=== PATIENT | female | born 1955 | race Caucasian/White ===

== ENCOUNTER 2021-04-21 17:21 | Observation (INO) ==
[2021-04-21 18:13] LABS: Basophils # (auto) 0.01 K/uL (0-0.2); Basophils % (auto) 0.2 %; Eosinophils # (auto) 0.12 K/uL (0-0.5); Eosinophils % (auto) 2.5 %; Hematocrit (blood only) 43.1 % (37-47); Hemoglobin 14.4 g/dL (12.0-16.0); Lymphocytes # (auto) 1.57 K/uL (1.2-3.4); Lymphocytes % (auto) 32.1 %; Mean Corpuscular Hemoglobin 30.9 pg (25-34); Mean Corpuscular Hgb Conc 33.4 g/dL (32-36); Mean Corpuscular Volume 92.5 fL (80-100); Mean Platelet Volume 10.2 fL (7.4-10.4); Monocytes # (auto) 0.34 K/uL (0.11-0.59); Neutrophils # (auto) 2.85 K/uL (1.4-6.5); Neutrophils % (auto) 58.2 %; Platelet Count 287 K/uL (130-400); RDW Coefficient of Variation 12.5 % (11.5-14.5); RDW Standard Deviation 42.2 fL (36.4-46.3); Red Blood Count 4.66 M/uL (4.2-5.4); White Blood Count 4.89 K/uL (4.8-10.8)
[2021-04-21 18:27] LABS: Partial Thromboplastin Time 25.2 Seconds (21.0-31.0); Prothrombin Time 9.8 Seconds (9.0-12.0)
[2021-04-21 18:36] LABS: Alanine Aminotransferase 21 U/L (12-78); Albumin Level 4.3 gm/dl (3.4-5.0); Aspartate Aminotransferase 12 U/L (15-37); BUN Creatinine Ratio 14.7 (10-20); Blood Urea Nitrogen 18 mg/dl (7-18); Calcium 9.6 mg/dl (8.5-10.1); Carbon Dioxide 27 mmol/L (21-32); Chloride 103 mmol/L (98-107); Est GFR (African American) 52.8 ml/min; Est GFR (Non-African American) 45.5 ml/min; Glucose 112 mg/dl (70-99); Potassium 3.8 mmol/L (3.5-5.1); Sodium 137 mmol/L (136-145)
[2021-04-21 18:40] LABS: Albumin Globulin Ratio 1.3 (0.9-2); Alkaline Phosphatase 84 U/L (45-117); Bilirubin,Total 0.3 mg/dl (0.2-1); Globulin 3.3 gm/dl (2.5-4.0); Total Protein 7.6 gm/dl (6.4-8.2); Troponin I < 0.015 ng/ml (0-0.045)
--- NOTE | 2021-04-21 18:59 | XRay Report ---
XR chest 1V portable CLINICAL HISTORY: Chest Pain COMPARISON STUDY: No previous studies for comparison. FINDINGS: No pneumothorax. No pleural effusion. Minimal atelectasis is seen at the left base. Minimal prominence of pulmonary interstitium is seen bi laterally without large consolidative lesions. Cardiomediastinal silhouette is within normal limits in size. Aorta is tortuous. No significant pulmonary vascular congestion.. Osseous structures: Thoracolumbar scoliosis and degenerative changes of the spine. IMPRESSION: 1. Minimal atelectasis at the left base. ACT 112: Negative or not required by law. The above report was generated using voice recognition software. It may contain grammatical, syntax o r spelling errors. Electronically signed by: Noa Mann DO 04/21/2021 6:57 PM
--- NOTE | 2021-04-21 20:23 | Emergency Department Note ---
Impression & Plan Pulmonary embolism, Chest pain, SOB (shortness of breath) ED Provider Note INFORMANT: Patient ED PROVIDER(S): Tonny García MD CHIEF COMPLAINT: Chest pain PLAN: Disposition: Admitted Condition: Good Outpatient prescription management: none Referral: None MEDICAL DECISION MAKING: Patient presented to the emergency department complaining of shortness of breath and chest pain. She had risk factors for PE. CT PE study and ultrasound imaging of the leg was ordered. The patient's CBC and chemistry were unremarkable. Troponin negative. The patient's D-dimer is elevated. The pat ient had a negative ultrasound. The CT scan is concerning for small pulmonary emboli. I discussed further management in the hospital. [facility] Patient was evaluated in the ER for further management. Triage Nursing notes reviewed and agree them. Vital Signs: reviewed and remarkable for no significant abnormalities Differential diagnosis: Cardiac ischemia, aortic dissection, pulmonary embolism, pneumothorax, pneumonia, pericarditis, myocarditis, esophageal rupture, GERD, cholecystitis, pancreatitis, musculoskeletal, as well as other pathologies. Diagnostics interpreted by me: ECG: Twelve-lead ECG reveals a sinus rhythm with PVCs at 82 bpm. Poor R wave progression noted. No ST elevation or depression. Normal axis. Cardiac Monitoring: Cardiac monitoring ordered by me: The patient was placed on continuous cardiac monitoring and observed. It revealed a normal sinus rhythm at 76 beats per minute without ectopy or evidence of dysrhythmia. Imaging studies: Ultrasound of the right leg negative for DVT. CT scan of the chest is concerning for small pulmonary emboli. Radiology also noted a cyst in the liver and fullness in the upper abdomen. HPI: The patient is a 66 year old female who presents to the Emergency Room with complaints of chest pain. This started 3 days ago and is fluctuating but never goes away. The patient also notes the following associated symptoms, SOB. The patient has been using excedrin for relieving factors. Current pain is rated as 6/10. Pt denies LOC, headache, fevers, chills, diaphoresis, visual changes, neck pain, nausea, vomiting, abdominal pain, back pain, melena, hematochezia, urinary symptoms, numbness, weakness, lymphadenopathy, rash, or other complaints. ROS: See above HPI for pertinent positives & negatives. A total of 10 systems reviewed and were otherwise negative. PAST MEDICAL HISTORY:See Below , arthritis PAST SURGICAL HISTORY:See Below, foot reconstruction FAMILY HISTORY:See Below SOCIAL HISTORY:See Below, HOME MEDICATIONS:See Below ALLERGIES:See Below VITALS:See Below PHYSICAL EXAMINATION: GENERAL: Awake, alert, well-appearing, in no distress HENT: Normocephalic, atraumatic. Oropharynx unremarkable. EYES: Normal conjunctiva. Sclera non-icteric. NECK: Inspection normal. Non-tender. Supple. No nuchal rigidity. FROM. No masses. RESPIRATORY: Clear to auscultation. No wheezes. No rales. Normal respiratory effort. CARDIAC: Normal rate. Normal rhythm. No murmurs. No rubs. Extremities warm and well perfused. Pulses equal. No JVD. GI: Soft, non-distended. No tenderness to palpation. No rebound or guarding. No masses. RECTAL: Deferred. MUSCULOSKELETAL: Atraumatic. Chest examination reveals no tenderness. The back is symmetrical on inspection without obvious abnormality. There is no CVA tenderness to palpation. No joint edema. LOWER EXTREMITIES: Calves are equal size bilaterally and non-tender. No leg edema. No discoloration. Right foot edema. Brace and jules wrap present on right foot. NEURO: Normal sensorium. No sensory or motor deficits noted. SKIN: No rash or jaundice noted. Tonny García MD Past Med/Surg History Social History Smoking Status: Never smoker Feels Safe at Home: Yes Allergies Allergies Allergy/AdvReac Type Severity Reaction Status Date / Time Penicillins Allergy Unknown UNKNOWN Unverified 04/21/21 21:52 Sulfa (Sulfonamide Allergy Unknown UNKNOWN Unverified 04/21/21 21:52 Antibiotics) Home Meds Home Medications Medication Instructions Recorded Confirmed aspirin 81 mg tablet,delayed 81 mg PO QAM 04/21/21 04/21/21 release [id number] 250 1 tab PO Q6H PRN 04/21/21 04/21/21 mg-250 mg-65 mg tablet (Excedrin Extra Strength) cranberry 500 mg capsule 500 mg PO QAM 04/21/21 04/21/21 escitalopram oxalate 10 mg tablet 10 mg PO QAM 04/21/21 04/21/21 meloxicam 15 mg tablet 15 mg PO QAM 04/21/21 04/21/21 naproxen sodium 220 mg tablet 440 mg PO Q12H PRN 04/21/21 04/21/21 (Aleve) vitamin A-vitamin C-vit E-min 1 tab PO QAM 04/21/21 04/21/21 tablet Results & Data (ED) Vital Signs Vital Signs - 24 hr 04/21/21 17:37 04/21/21 21:02 04/21/21 21:37 Temperature 36.7 C Temperature Source Temporal Artery Scan Pulse Rate 97 H 70 Pulse Rate [Finger] 67 Pulse Rate from SpO2 Sensor 69 Respiratory Rate 20 18 21 Respiratory Effort / Characteristics Non-Labored Spontaneous Respiratory Depth Normal Blood Pressure 135/81 143/83 H Blood Pressure [Right Arm] 134/79 Blood Pressure Mean 99 103 Blood Pressure Mean [Right Arm] 97 Blood Pressure Position Sitting Pulse Oximetry 97 99 97 Oxygen Delivery Method Room Air Room Air Nasal Cannula Oxygen Flow Rate 3 Sepsis Recent Fever Within 48 Hours No Sepsis New/Unexplained Change in Mental Status No Sepsis Action Taken by Nursing No Action Required 04/21/21 22:00 04/21/21 22:30 Temperature Temperature Source Pulse Rate 68 76 Pulse Rate [Finger] Pulse Rate from SpO2 Sensor 63 73 Respiratory Rate 19 18 Respiratory Effort / Characteristics Respiratory Depth Blood Pressure 145/91 H 163/96 H Blood Pressure [Right Arm] Blood Pressure Mean 109 118 Blood Pressure Mean [Right Arm] Blood Pressure Position Pulse Oximetry 99 97 Oxygen Delivery Method Room Air Room Air Oxygen Flow Rate Sepsis Recent Fever Within 48 Hours Sepsis New/Unexplained Change in Mental Status Sepsis Action Taken by Nursing Laboratory Data Result diagrams: 04/21/21 18:00 04/21/21 18:00 Lab Results 04/21/21 04/21/21 04/21/21 Range/Units 18:00 18:00 18:00 WBC 4.89 (4.8-10.8) K/uL RBC 4.66 (4.2-5.4) M/uL Hgb 14.4 (12.0-16.0) g/dL Hct 43.1 (37-47) % MCV 92.5 (80-100) fL MCH 30.9 (25-34) pg MCHC 33.4 (32-36) g/dL RDW Std Deviation 42.2 (36.4-46.3) fL RDW Coeff of Heri 12.5 (11.5-14.5) % Plt Count 287 (130-400) K/uL MPV 10.2 (7.4-10.4) fL Immature Gran % (Auto) 0.0 % Neut % (Auto) 58.2 % Lymph % (Auto) 32.1 % Linn % (Auto) 7.0 % Eos % (Auto) 2.5 % Baso % (Auto) 0.2 % Neut # (Auto) 2.85 (1.4-6.5) K/uL Lymph # (Auto) 1.57 (1.2-3.4) K/uL Linn # (Auto) 0.34 (0.11-0.59) K/uL Eos # (Auto) 0.12 (0-0.5) K/uL Baso # (Auto) 0.01 (0-0.2) K/uL Immature Gran # (Auto) 0.00 (0.00-0.02) K/uL PT 9.8 (9.0-12.0) Seconds INR 1.0 (0.9-1.1) APTT 25.2 (21.0-31.0) Seconds PTT Ratio 1.0 D-Dimer (0-500) ug/L FEU Sodium 137 (136-145) mmol/L Potassium 3.8 (3.5-5.1) mmol/L Chloride 103 (98-107) mmol/L Carbon Dioxide 27 (21-32) mmol/L Anion Gap 7.0 (3-11) BUN 18 (7-18) mg/dl Creatinine 1.24 H (0.6-1.2) mg/dl Est Cr Clr Drug Dosing Not Reportable Est GFR ( Amer) 52.8 ml/min Est GFR (Non-Af Amer) 45.5 ml/min BUN/Creatinine Ratio 14.7 (10-20) Glucose 112 H (70-99) mg/dl Calcium 9.6 (8.5-10.1) mg/dl Total Bilirubin 0.3 (0.2-1) mg/dl AST 12 L (15-37) U/L ALT 21 (12-78) U/L Alkaline Phosphatase 84 (45-117) U/L Troponin I < 0.015 (0-0.045) ng/ml Total Protein 7.6 (6.4-8.2) gm/dl Albumin 4.3 (3.4-5.0) gm/dl Globulin 3.3 (2.5-4.0) gm/dl Albumin/Globulin Ratio 1.3 (0.9-2) 04/21/21 Range/Units 22:08 WBC (4.8-10.8) K/uL RBC (4.2-5.4) M/uL Hgb (12.0-16.0) g/dL Hct (37-47) % MCV (80-100) fL MCH (25-34) pg MCHC (32-36) g/dL RDW Std Deviation (36.4-46.3) fL RDW Coeff of Heri (11.5-14.5) % Plt Count (130-400) K/uL MPV (7.4-10.4) fL Immature Gran % (Auto) % Neut % (Auto) % Lymph % (Auto) % Linn % (Auto) % Eos % (Auto) % Baso % (Auto) % Neut # (Auto) (1.4-6.5) K/uL Lymph # (Auto) (1.2-3.4) K/uL Linn # (Auto) (0.11-0.59) K/uL Eos # (Auto) (0-0.5) K/uL Baso # (Auto) (0-0.2) K/uL Immature Gran # (Auto) (0.00-0.02) K/uL PT (9.0-12.0) Seconds INR (0.9-1.1) APTT (21.0-31.0) Seconds PTT Ratio D-Dimer 1030 H* (0-500) ug/L FEU Sodium (136-145) mmol/L Potassium (3.5-5.1) mmol/L Chloride (98-107) mmol/L Carbon Dioxide (21-32) mmol/L Anion Gap (3-11) BUN (7-18) mg/dl Creatinine (0.6-1.2) mg/dl Est Cr Clr Drug Dosing Est GFR ( Amer) ml/min Est GFR (Non-Af Amer) ml/min BUN/Creatinine Ratio (10-20) Glucose (70-99) mg/dl Calcium (8.5-10.1) mg/dl Total Bilirubin (0.2-1) mg/dl AST (15-37) U/L ALT (12-78) U/L Alkaline Phosphatase (45-117) U/L Troponin I (0-0.045) ng/ml Total Protein (6.4-8.2) gm/dl Albumin (3.4-5.0) gm/dl Globulin (2.5-4.0) gm/dl Albumin/Globulin Ratio (0.9-2) Administered Medications Discontinued Medications Sodium Chloride (Nss 1000ml) 1,000 mls @ 999 mls/hr IV .Q1H1M ONE Stop: 04/21/21 21:24 Last Infusion: 04/21/21 22:10 Dose: 0 mls/hr Documented by: [id number] Admin: 04/21/21 21:04 Dose: 999 mls/hr Documented by: [id number] Ioversol (Optiray 320 125ml) 120 ml IV ONCE ONE Stop: 04/21/21 20:30 Last Admin: 04/21/21 20:29 Dose: 120 ml Documented by: [id number] Imaging Data Radiologist's Impression: Chest X-Ray 04/21/21 17:40 XR chest 1V portable CLINICAL HISTORY: Chest Pain COMPARISON STUDY: No previous studies for comparison. FINDINGS: No pneumothorax. No pleural effusion. Minimal atelectasis is seen at the left base. Minimal prominence of pulmonary interstitium is seen bilaterally without large consolidative lesions. Cardiomediastinal silhouette is within normal limits in size. Aorta is tortuous. No significant pulmonary vascular congestion.. Osseous structures: Thoracolumbar scoliosis and degenerative changes of the spine. IMPRESSION: 1. Minimal atelectasis at the left base. ACT 112: Negative or not required by law. The above report was generated using voice recognition software. It may contain grammatical, syntax or spelling errors. Electronically signed by: Noa Mann DO 04/21/2021 6:57 PM Chest CTA 04/21/21 20:24 CT ANGIOGRAM OF THE CHEST CLINICAL HISTORY: chest pain COMPARISON STUDY: No previous studies for comparison. TECHNIQUE: Following the IV administration of 120 mL of Optiray, CT angiogram of the thorax was performed from the thoracic inlet to the lung bases utilizing the pulmonary embolus protocol. Images are reviewed in the axial, sagittal, and coronal planes. IV contrast was administered without complication. MIP imaging was performed. A dose lowering technique was utilized adhering to the principles of ALARA. CT DOSE: 582.97 mGy.cm FINDINGS: Questionable decrease in opacification within right upper lobe branch of pulmonary artery might represent small pulmonary embolus (series 4 image 163) however opacification within main pulmonary artery is insufficient for adequate pulmonary embolus evaluation. Also there is questionable decrease opacification within left upper lobe pulmonary artery branches which might represent small embolus or flow artifact on this limited exam. Main pulmonary artery is normal in caliber however there is dilatation of the right pulmonary artery which could be seen in pulmonary hypertension. Heart is normal in size without evidence of pericardial effusion or right heart strain. No significant coronary calcifications are seen. No pathologically enlarged axillary mediastinal or hilar lymph nodes were visualized. Thoracic aorta is tortuous and normal in caliber. No significant calcified plaques are seen. Tracheobronchial tree is patent. No large infiltrates or consolidative lesions are seen. No pleural effusion is seen. There are few pulmonary nodules within left lower lobe measuring up to 6 mm in size (4/49). Also small atelectasis is seen at dependent portion of the left lower lobe. No pleural effusions are visualized. Limited evaluation of upper abdominal viscera shows few ill-defined hypoattenuat ing lesions within left lobe of the liver and questionable soft tissue attenuation within left upper quadrant which might represent prominent pancreatic tail versus other etiology (series 4 image 1). Osseous structure: Multilevel mild degenerative changes of the spine. IMPRESSION: 1. Few areas of questionable decreased opacification within small branches of the pulmonary artery within bilateral upper lobes which could represent small emboli or flow artifact. Opacification within pulmonary artery is insufficient for pulmonary embolus evaluation. No evidence of right heart strain. Dilatation of the right pulmonary artery could be seen in pulmonary hypertension. Findings will be called to the emergency department. 2. Few questionable nodules within left lower lobe measuring up to 6 mm in size. Short-term follow-up in 3-6 months is recommended per Fleischner Society guidelines. 3. Questionable appearance of the left upper quadrant as detailed above. Please correlate above-mentioned findings with clinical presentation of abdominal pain. Further evaluation with CT of the abdomen on nonemergency basis is suggested. Please refer to below summary of Fleischner criteria recommendations for follow- up of incidental CT nodules (Mirza Danielle, Guidelines for management of small pulmonary nodules detected on CT scans: A statement from the Fleischner Society, Radiology 237: [phone].) SOLID NODULES Solitary nodule size: <6 mm * low risk patients: no follow-up needed * high risk patients: optional CT at 12 months Solitary nodule size: 6-8 mm * low risk patients: follow-up at 6-12 months, then consider further follow-up at 18-24 months * high risk patients: initial follow-up CT at 6-12 months and then at 18-24 months if no change Solitary nodule size: >8 mm * either low or high risk patients - consider follow-up CT at 3 months, and/or CT-PET, and/or biopsy Multiple nodules size: <6 mm * low risk patients: no routine follow-up * high risk patients: optional CT at 12 months Multiple nodules size: 6-8 mm * low risk patients: follow-up at 3-6 months, then consider further follow-up at 18-24 months * high risk patients: follow-up at 3-6 months, then at 18-24 months if no change Multiple nodules size: >8 mm * low risk patients: follow-up at 3-6 months, then consider further follow-up at 18-24 months * high risk patients: follow-up at 3-6 months, then at 18-24 months if no change Note: newly detected indeterminate nodule in persons 35 years of age or older. * low risk patients: minimal or absent history of smoking and/or other known risk factors * high risk patients: history of smoking or of other known risk factors (e.g. first degree relative with lung cancer, or exposure to asbestos, radon, uranium) * if a nodule up to 8 mm is partly solid or is ground glass further follow-up is required after 24 months to exclude possible slow growing adenocarcinoma (ETHAN) SUBSOLID NODULES Solitary pure ground-glass nodule * nodule size <6 mm - no CT follow-up required * nodule size >=6 mm - follow-up CT at 6-12 months, then every 2 years until 5 years Solitary part-solid nodule * nodule size <6 mm - no CT follow-up required * nodule size >=6 mm - follow-up CT at 3-6 months. If unchanged, and solid component remains <6 mm, then annual follow-up for 5 years Multiple subsolid nodules * nodule size <6 mm - follow-up CT at 3-6 months, consider further follow-up at 2 and 4 years if stable * nodule size >=6 mm - follow-up CT at 3-6 months, subsequent management based on the most suspicious nodule(s) ACT 112: Positive. There are findings on this exam that require communication between the performing entity and the patient following Patient Test Result Information Act ([place] Act 112) guidelines. The above report was generated using voice recognition software. It may contain grammatical, syntax or spelling errors. Electronically signed by: Noa Mann DO 04/21/2021 9:27 PM Venous Doppler Study 04/21/21 20:28 ULTRASOUND RIGHT LOWER EXTREMITY VENOUS CLINICAL HISTORY: Right leg swelling. COMPARISON STUDY: No priors. TECHNIQUE: Real-time, grayscale, and color Doppler sonography of the deep veins of the right lower extremity was performed from the inguinal crease to the calf. Compression and augmentation were utilized. FINDINGS: There is no sonographic evidence of deep venous thrombosis identified in the right lower extremity. The common femoral, superficial femoral, and popliteal veins are patent and normally compressible. The greater saphenous vein and the profunda femoris vein at the junction with the common femoral vein are clear. The visualized calf veins are patent. IMPRESSION: There is no sonographic evidence of deep venous thrombosis identified in the right lower extremity. ACT 112: Negative or not required by law. Electronically signed by: Derrell Michael M.D. 04/21/2021 9:34 PM Discharge Plan Visit Data Chief Complaint: Chest Pain Stated Complaint: CHEST PAIN ED Provider: Tonny García Discharge Problem: Pulmonary embolism, Chest pain, SOB (shortness of breath) Forms Stand Alone Forms: [facility] [employer] Prescriptions Prescriptions: No Action meloxicam 15 mg tablet 15 mg PO QAM RF: 0 aspirin 81 mg Tablet,Delayed Release (Dr/Ec) 81 mg PO QAM RF: 0 naproxen sodium [Aleve] 220 mg Tablet 440 mg PO Q12H PRN (Reason: Pain) RF: 0 Excedrin Extra Strength 250-250-65 mg Tablet 1 tab PO Q6H PRN (Reason: Pain) RF: 0 cranberry 500 mg Capsule 500 mg PO QAM RF: 0 Ocuvite Tablet 1 tab PO QAM RF: 0 escitalopram oxalate 10 mg tablet 10 mg PO QAM RF: 0 Referrals Referrals: PCP,NO [Physician] -
[2021-04-21] MEDS ORDERED: SODIUM CHLORIDE 0.9% 1000ML 1,000 ML IV ONE (20:24)
[2021-04-21] MEDS ORDERED: OPTIRAY 320 125ml IV ONE (20:29)
--- NOTE | 2021-04-21 21:28 | CT Scan Report ---
CT ANGIOGRAM OF THE CHEST CLINICAL HISTORY: chest pain COMPARISON STUDY: No previous studies for comparison. TECHNIQUE: Following the IV administration of 120 mL of Optiray, CT angiogram of the thorax was perfo rmed from the thoracic inlet to the lung bases utilizing the pulmonary embolus protocol. Images are r eviewed in the axial, sagittal, and coronal planes. IV contrast was administered without complication . MIP imaging was performed. A dose lowering technique was utilized adhering to the principles of AL ALEX. CT DOSE: 582.97 mGy.cm FINDINGS: Questionable decrease in opacification within right upper lobe branch of pulmonary artery might repre sent small pulmonary embolus (series 4 image 163) however opacification within main pulmonary artery is insufficient for adequate pulmonary embolus evaluation. Also there is questionable decrease opacification within left upper lobe pulmonary artery branches wh ich might represent small embolus or flow artifact on this limited exam. Main pulmonary artery is nor mal in caliber however there is dilatation of the right pulmonary artery which could be seen in pulmo nary hypertension. Heart is normal in size without evidence of pericardial effusion or right heart strain. No significan t coronary calcifications are seen. No pathologically enlarged axillary mediastinal or hilar lymph nodes were visualized. Thoracic aorta is tortuous and normal in caliber. No significant calcified plaques are seen. Tracheobronchial tree is patent. No large infiltrates or consolidative lesions are seen. No pleural effusion is seen. There are few pulmonary nodules within left lower lobe measuring up to 6 mm in size (4/49). Also smal l atelectasis is seen at dependent portion of the left lower lobe. No pleural effusions are visualized. Limited evaluation of upper abdominal viscera shows few ill-defined hypoattenuating lesions within le ft lobe of the liver and questionable soft tissue attenuation within left upper quadrant which might represent prominent pancreatic tail versus other etiology (series 4 image 1). Osseous structure: Multilevel mild degenerative changes of the spine. IMPRESSION: 1. Few areas of questionable decreased opacification within small branches of the pulmonary artery w ithin bilateral upper lobes which could represent small emboli or flow artifact. Opacification within pulmonary artery is insufficient for pulmonary embolus evaluation. No evidence of right heart strain . Dilatation of the right pulmonary artery could be seen in pulmonary hypertension. Findings will be called to the emergency department. 2. Few questionable nodules within left lower lobe measuring up to 6 mm in size. Short-term follow-u p in 3-6 months is recommended per Fleischner Society guidelines. 3. Questionable appearance of the left upper quadrant as detailed above. Please correlate above-ment ioned findings with clinical presentation of abdominal pain. Further evaluation with CT of the abdome n on nonemergency basis is suggested. Please refer to below summary of Fleischner criteria recommendations for follow-up of incidental CT n odules (Mirza Danielle, Guidelines for management of small pulmonary nodules detected on CT scans: A sta tement from the Fleischner Society, Radiology 237: [phone].) SOLID NODULES Solitary nodule size: <6 mm * low risk patients: no follow-up needed * high risk patients: optional CT at 12 months Solitary nodule size: 6-8 mm * low risk patients: follow-up at 6-12 months, then consider further follow-up at 18-24 months * high risk patients: initial follow-up CT at 6-12 months and then at 18-24 months if no change Solitary nodule size: >8 mm * either low or high risk patients - consider follow-up CT at 3 months, and/or CT-PET, and/or biopsy Multiple nodules size: <6 mm * low risk patients: no routine follow-up * high risk patients: optional CT at 12 months Multiple nodules size: 6-8 mm * low risk patients: follow-up at 3-6 months, then consider further follow-up at 18-24 months * high risk patients: follow-up at 3-6 months, then at 18-24 months if no change Multiple nodules size: >8 mm * low risk patients: follow-up at 3-6 months, then consider further follow-up at 18-24 months * high risk patients: follow-up at 3-6 months, then at 18-24 months if no change Note: newly detected indeterminate nodule in persons 35 years of age or older. * low risk patients: minimal or absent history of smoking and/or other known risk factors * high risk patients: history of smoking or of other known risk factors (e.g. first degree relative with lung cancer, or exposure to asbestos, radon, uranium) * if a nodule up to 8 mm is partly solid or is ground glass further follow-up is required after 24 m onths to exclude possible slow growing adenocarcinoma (ETHAN) SUBSOLID NODULES Solitary pure ground-glass nodule * nodule size <6 mm - no CT follow-up required * nodule size >=6 mm - follow-up CT at 6-12 months, then every 2 years until 5 years Solitary part-solid nodule * nodule size <6 mm - no CT follow-up required * nodule size >=6 mm - follow-up CT at 3-6 months. If unchanged, and solid component remains <6 mm, then annual follow-up for 5 years Multiple subsolid nodules * nodule size <6 mm - follow-up CT at 3-6 months, consider further follow-up at 2 and 4 years if sta ble * nodule size >=6 mm - follow-up CT at 3-6 months, subsequent management based on the most suspiciou s nodule(s) ACT 112: Positive. There are findings on this exam that require communication between the performing entity and the patient following Patient Test Result Information Act ([place] Act 112) guidelines. The above report was generated using voice recognition software. It may contain grammatical, syntax o r spelling errors. Electronically signed by: Noa Mann DO 04/21/2021 9:27 PM
--- NOTE | 2021-04-21 21:36 | Ultrasound Report ---
ULTRASOUND RIGHT LOWER EXTREMITY VENOUS CLINICAL HISTORY: Right leg swelling. COMPARISON STUDY: No priors. TECHNIQUE: Real-time, grayscale, and color Doppler sonography of the deep veins of the right lower ex tremity was performed from the inguinal crease to the calf. Compression and augmentation were utilize d. FINDINGS: There is no sonographic evidence of deep venous thrombosis identified in the right lower ex tremity. The common femoral, superficial femoral, and popliteal veins are patent and normally janett sible. The greater saphenous vein and the profunda femoris vein at the junction with the common femor al vein are clear. The visualized calf veins are patent. IMPRESSION: There is no sonographic evidence of deep venous thrombosis identified in the right lower extremity. ACT 112: Negative or not required by law. Electronically signed by: Derrell Michael M.D. 04/21/2021 9:34 PM
[2021-04-21 22:45] LABS: D Dimer 1030 ug/L FEU (0-500)
[2021-04-22] MEDS ORDERED: Heparin IV Adult Wt-Based Standard WITH Bolus Protocol IV SCH (00:43)
[2021-04-22] MEDS ORDERED: HEPARIN SOD (PORCINE) 1000 UNIT/ML IV ONE (01:00)
[2021-04-22] MEDS ORDERED: HEPARIN SODIUM/DEXTROSE 25,000 UNITS/500 ML BAG IV SCH (01:00)
[2021-04-22] MEDS ORDERED: POLYETHYLENE (MIRALAX) 17 GM PACK PO PRN (01:52)
[2021-04-22] MEDS ORDERED: ACETAMINOPHEN 325 MG TAB PO PRN (01:52)
--- NOTE | 2021-04-22 02:32 | History and Physical Report ---
DATE OF ADMISSION: 04/22/2021. CHIEF COMPLAINT: Chest pain. HISTORY OF PRESENT ILLNESS: This is a 66-year-old female with past medical history significant for morbid obesity, generalized anxiety disorder, presents with chest pain. The patient says she is having pain in the chest since last , but got progressively worse with 5/10 severity, sometimes gets short of breath and some cough.Pain is more when taking deep breath. She has a right foot toe reconstruction surgery about 8 weeks ago. Since then she is not mobile. She is only on the wheelchair. She is taking aspirin as blood thinner. She is not ambulating. Denies any fever or chills. No headache, no blurred visions, no earache, no runny nose, no sore throat. Appetite is okay, no dysphagia, no nausea, no abdominal pain, normal bowel and bladder movements. Denies any blood in stools or black stools. No hematuria. Currently resting comfortably and hemodynamically stable. ALLERGIES: PENICILLIN, SULFA ANTIBIOTICS. PAST MEDICAL HISTORY: As mentioned above. PAST SURGICAL HISTORY: Bilateral knee arthroplasty, colonoscopy, right foot toe surgery. MEDICATIONS: The patient on aspirin 81 mg p.o. daily, Excedrin Extra Strength 1 tablet p.o. q. 6 hours p.r.n., cranberry 500 mg p.o. a.m., Lexapro 10 mg p.o. a.m., meloxicam 15 mg p.o. a.m., vitamins, Ocuvite 1 tablet p.o. a.m. FAMILY HISTORY: Significant for mother had stroke. SOCIAL HISTORY: No smoking. Alcohol occasional. No drug use. REVIEW OF SYSTEMS: As per HPI. Rest of review of systems is negative. PHYSICAL EXAMINATION: GENERAL: The patient is obese, not in acute distress. VITAL SIGNS: Temperature 36.7, pulse 77, respiratory rate 17, blood pressure 146/88, oxygen 96% on room air. HEENT: Pupils equal, round and reactive to light. Oral mucosa moist. NECK: No JVD, no neck masses. HEART: S1 and S2 heard, regular rate and rhythm. No murmur, no gallop. RESPIRATORY SYSTEM: Normal AP diameter. No accessory muscle use. No wheeze, no crackles. ABDOMEN: Soft, bowel sounds present, nontender, no distention. CENTRAL NERVOUS SYSTEM: Cranial nerves II-XII grossly intact, nonfocal. EXTREMITIES: Right lower extremity is slightly edematous and right foot is in dressing. No erythema seen. LABORATORY DATA: WBC 4.8, hemoglobin 14.4, hematocrit 43.1, platelets 287. PT 9.8, INR 1, APTT 25.2. D-dimer 1030. Sodium 137, potassium 3.8, chloride 103, bicarbonate 27, BUN 18, creatinine 1.24, serum glucose 112, calcium 9.6, total bilirubin 0.3, AST 12, ALT 21, alkaline phosphatase 84. Troponin I less than 0.015. SARS-CoV-2 PCR negative. IMAGING DATA: Right lower extremity venous Doppler, no DVT. Chest x-ray: Minimal atelectasis of the left base. EKG: Sinus rhythm with occasional PVCs at a rate of 82. CTA of the chest, a few areas of questionable decreased opacification within the small branch of the pulmonary artery with bilateral upper lobes, which could represent small emboli or artifact. Opacification within the pulmonary arteries insufficient for pulmonary embolus evaluation. No evidence of right heart strain. Dilatation of the right pulmonary artery could be seen in pulmonary hypertension, few questionable nodules in the left lower lobe measuring up to 6 mm in size. Followup in 3-6 months recommended. ASSESSMENT AND PLAN: This is a 66-year-old female who presented with chest pain and found to have questionable PE. 1. Questionable upper lobe PE. The patient is mostly non mobile for last 8 weeks and comes with chest pain on deep breath and elevation in D-dimer. No DVT in lower extremity. CT chest showed questionable small PE in the bilateral upper lobes. Starting on IV heparin and consult pulmonology for further recommendations. Monitor in the medical floor. 2. Obesity: Needs counseling. 3. Generalized anxiety disorder. On Lexapro. 4. DVT prophylaxis: On IV heparin. DISPOSITION: Closely monitor in the medical floor. Expect to discharge home and follow up with family doctor. Level 1 full code. Job ID: [id number] [facility]
[2021-04-22 06:18] LABS: Basophils # (auto) 0.01 K/uL (0-0.2); Basophils % (auto) 0.2 %; Eosinophils # (auto) 0.12 K/uL (0-0.5); Eosinophils % (auto) 2.3 %; Hematocrit (blood only) 40.9 % (37-47); Hemoglobin 13.5 g/dL (12.0-16.0); Immature Granulocytes # (auto) 0.01 K/uL (0.00-0.02); Immature Granulocytes % (auto) 0.2 %; Lymphocytes # (auto) 1.56 K/uL (1.2-3.4); Mean Corpuscular Hemoglobin 30.5 pg (25-34); Mean Corpuscular Volume 92.3 fL (80-100); Monocytes # (auto) 0.32 K/uL (0.11-0.59); Monocytes % (auto) 6.2 %; Neutrophils # (auto) 3.18 K/uL (1.4-6.5); Neutrophils % (auto) 61.1 %; Platelet Count 246 K/uL (130-400); RDW Coefficient of Variation 12.6 % (11.5-14.5); RDW Standard Deviation 42.7 fL (36.4-46.3); Red Blood Count 4.43 M/uL (4.2-5.4)
[2021-04-22 06:34] LABS: Partial Thromboplastin Ratio 4.3
[2021-04-22 06:52] LABS: BUN Creatinine Ratio 16.7 (10-20); Calcium 9.7 mg/dl (8.5-10.1); Creatinine Clr Calc Pharmacy 105.9 ml/min; Est GFR (African American) 100.2 ml/min; Est GFR (Non-African American) 86.4 ml/min; Magnesium 2.4 mg/dl (1.8-2.4); Potassium 3.6 mmol/L (3.5-5.1)
[2021-04-22 07:12] LABS: Partial Thromboplastin Time 114.4 Seconds (21.0-31.0)
[2021-04-22] MEDS ORDERED: CEROVITE ADV FORMULA TAB PO SCH (09:00)
[2021-04-22] MEDS ORDERED: ESCITALOPRAM OXALATE 10 MG TAB PO SCH (09:00)
[2021-04-22] MEDS ORDERED: ASPIRIN 81 MG ECTAB PO SCH (09:00)
[2021-04-22] MEDS ORDERED: MoRPHine SULFATE 4 MG/ML 1 ML CARP\\VIAL IV PRN (10:14)
[2021-04-22] MEDS ORDERED: oxyCODONE HCL IR 5 MG TAB (IMMEDIATE RELEASE) PO PRN (11:19)
--- NOTE | 2021-04-22 11:25 | Hospitalist Progress Note ---
Date of Service April 22, 2021 Assessment & Plan (1) Pulmonary embolism: (2) Chest pain: (3) SOB (shortness of breath): (4) Arthritis of left knee: (5) Right knee DJD: Plan: ASSESSMENT AND PLAN: This is a 66-year-old female who presented with chest pain and found to have questionable PE. 1. Questionable upper lobe PE. The patient is mostly non mobile for last 8 weeks and comes with chest pain on deep breath and elevation in D-dimer. No DVT in lower extremity. CT chest showed questionable small PE in the bilateral upper lobes. She was started on IV heparin and pulmonology to see for further recommendations. Had R Ankle reconstruction recently 2. Obesity 3. Generalized anxiety disorder. On Lexapro. 4. DVT prophylaxis: On IV heparin. ROS-No Headache, No Visual Changes, No Nausea, No Vomiting, No Fever, No Chills, No Neck Pain or Stiffness, + Chest Pain, No Palpitations, +SOB, +GARCIA, No Cough, No Sputum, No Wheezing, No Abdominal Pain, No Diarrhea, No Hematemesis, No Hemoptysis, No Unexpected Weight Loss, No Flank pain, No Melena, No Hematochezia, No Frequency, No Urgency, No Burning, No Hematuria, No Rashes, No Diaphoresis. Appetite is Normal Physical Exam Gen-AAO x 3, NAD, Afebrile Head-NCAT, EOMI, PERRLA, Anicteric Sclera, No Posterior Pharyngeal Erythema Neck-Supple, No JVD, No Thyromegaly, No Masses, No LAD, No Bruits Lungs-Clear to Auscultation Bilaterally, No Rales, No Rhonchi, No Wheezing, No Crepitus Chest-No S4, +S1, +S2, No S3, No Murmurs, No Rubs, No Gallops, No Ectopy Abdomen-Soft, Bowel Sounds Present, Non Tender, Non Distended, No Hepatomegaly, No Splenomegaly, No Palpable Masses, No Rebound, No Rigidity, No Guarding Musculoskeletal-Full Range of Motion Bilaterally, No CVAT Extremities-No Cyanosis, No Clubbing, No Edema Nuero-Cranial Nerves II-XII grossly intact, Motor WNL, DTRs WNL, Strength WNL, Non Focal Psych-Normal Mood Admission and Anticipated Discharge Date Admission Date: April 22, 2021 Results & Data Results & Data ([facility]) Vital Signs (Past 12 Hours) Vital Signs Temp Pulse Pulse Resp BP BP Pulse Ox 04/22/21 07:26 36.9 C 68 16 143/85 H 97 04/22/21 01:59 36.5 C 77 19 168/92 H 99 04/22/21 01:30 77 17 123/77 96 04/22/21 01:00 74 19 146/88 H 95 04/22/21 00:30 77 15 155/96 H 98 04/22/21 00:00 69 12 143/85 H 98 04/21/21 23:30 75 17 151/112 H 99
--- NOTE | 2021-04-22 11:54 | Pulmonary Consultation ---
Date of Consultation April 22, 2021 Assessment & Plan (1) Pulmonary embolism: 66-year-old female with a history of obesity and chronic right lower extremity injury status post surgery reconstructive surgery of her foot 8 weeks ago presenting to the hospital due to chest pain and found to have possible pulmonary emboli. Pulmonary emboli: CT chest findings suggested questionable decrease of opacification within small branches of the upper lobes concerning for possible pulmonary emboli. Given her elevated D-dimer, symptoms and immobility, I think it is best to go ahead and treat her for pulmonary emboli. I would consider this a provoked event at this time. I would recommend 3 months of anticoagulation. Recommend switching to a DOAC such as Eliquis. I think she can be safely discharged home today with follow-up with her primary care physician. Notably, only an ultrasound was performed of the right lower extremity. No left lower extremity ultrasound was completed. I do not think this will exchange engineer significantly at this time. Chest pain: Likely pleuritic chest pain from pulmonary emboli. If symptoms persist, may need to consider ischemic evaluation of her heart in the future. Notably, troponins were negative x2 during this hospitalization. All questions were answered to her satisfaction. Thank you for the consultation. Please call with questions. (2) Chest pain: History of Present Illness Reason for Consultation: Questionable pulmonary emboli Attending Physician: Carlo Nicolas DO History of Present Illness 66-year-old female with a past medical history of obesity (BMI 36.5), generalized anxiety disorder and arthritis presenting to the hospital due to chest pain overnight on 04/22/2021. Patient has been having pain since which is progressively worsened. Occasionally she has a cough and she has pleuritic type pain. She had surgery on her right toe about 8 weeks ago and her mobility has been limited since that time. She uses a wheelchair currently. She denies any previous history of DVT or pulmonary emboli. She denies any shortness of breath. She underwent a chest CTA which demonstrated few areas of questionable increased opacification within the small branch of the pulmonary artery within the bilateral upper lobes. This was thought to represent possible small emboli or flow artifact. Dilation of the right pulmonary artery was seen. D-dimer was elevated to 1030 ug/liters. Currently, she is on a heparin drip. Allergies Allergy/AdvReac Type Severity Reaction Status Date / Time Penicillins Allergy Unknown UNKNOWN Unverified 04/21/21 21:52 Sulfa (Sulfonamide Allergy Unknown UNKNOWN Unverified 04/21/21 21:52 Antibiotics) Home Medications Medication Instructions Recorded Confirmed Type aspirin 81 mg tablet,delayed 81 mg PO QAM 04/21/21 04/21/21 History release bsezkbe-vshjiwyetdoqm-lygdgryv 250 1 tab PO Q6H PRN 04/21/21 04/21/21 History mg-250 mg-65 mg tablet (Excedrin Extra Strength) cranberry 500 mg capsule 500 mg PO QAM 04/21/21 04/21/21 History escitalopram oxalate 10 mg tablet 10 mg PO QAM 04/21/21 04/21/21 History meloxicam 15 mg tablet 15 mg PO QAM 04/21/21 04/21/21 History naproxen sodium 220 mg tablet 440 mg PO Q12H PRN 04/21/21 04/21/21 History (Aleve) vitamin A-vitamin C-vit E-min 1 tab PO QAM 04/21/21 04/21/21 History tablet acetaminophen 325 mg tablet 650 mg PO Q4H PRN #90 tab 04/22/21 Rx apixaban 5 mg tablet (Eliquis) 5 mg PO Q12H #74 tab 04/22/21 Rx oxycodone 5 mg tablet 5 mg PO Q6H PRN #30 tab 04/22/21 Rx polyethylene glycol 3350 17 gram 17 g PO DAILY PRN #30 ea 04/22/21 Rx oral powder packet (Miralax) Patient History Social History Smoking Status: Never smoker Hx Alcohol Use: Yes Alcohol type: beer, wine and hard liquor Hx Substance Use: No Preferred Language: German Communication Ability: Effective Business Education Professor Required: No Beliefs That Will Affect Care: None marital status: Current Living Situation: Spouse Other Information That Helps Us Care for You: No Feels Safe at Home: Yes Safety Concerns: Feels Safe At This Time Assistive Devices: Special Shoe, Walker and Wheelchair Review of Systems Review of Systems: 07/17 pt ros negative unless noted elsewhere Physical Exam Constitutional: WD/WN, vitals as above + obese Eyes: PERRL, conjunctivae normal, anicteric sclerae ENMT: external ear and nose normal, oropharynx normal Neck: trachea midline, no thyromegaly Respiratory: normal respiratory effort, lungs clear to auscultation Cardiovascular: RRR, no murmur, no edema Gastrointestinal (Abdomen): normal bowel sounds, soft, nontender, no hepatosplenomegaly Musculoskeletal: no cyanosis or clubbing, extremities motor strength 5/5 Neurologic: PERRL, EOMI, accommodation nl, no face palsy, no dysarthria Psychiatric: A+Ox3, euthymic affect Results & Data Results & Data ([facility]) Vital Signs (Past 12 Hours) Vital Signs Temp Pulse Pulse Resp BP BP Pulse Ox 04/22/21 07:26 98.4 F 68 16 143/85 H 97 04/22/21 01:59 97.7 F 77 19 168/92 H 99 04/22/21 01:30 77 17 123/77 96 04/22/21 01:00 74 19 146/88 H 95 04/22/21 00:30 77 15 155/96 H 98 04/22/21 00:00 69 12 143/85 H 98 Vital signs, labs and imaging reviewed PG Care Time/CCT Total # of Minutes Spent Total Time Spent with Patient: Total time spent is greater than 50% in coordination of care (as documented) at patient's floor/unit and/or counseling patient: Coding Level of Care Code 70405 Initial Inpt Care Lvl 3 Diagnoses Pulmonary embolism I26.99 Chest pain R07.9
--- NOTE | 2021-04-22 13:21 | Discharge Summary ---
Date of Service April 22, 2021 Admission HPI Per Admitting Provider This is a 66-year-old female with past medical history significant for morbid obesity, generalized anxiety disorder, presents with chest pain. The patient says she is having pain in the chest since last , but got progressively worse with 5/10 severity, sometimes gets short of breath and some cough.Pain is more when taking deep breath. She has a right foot toe reconstruction surgery about 8 weeks ago. Since then she is not mobile. She is only on the wheelchair. She is taking aspirin as blood thinner. She is not ambulating. Denies any fever or chills. No headache, no blurred visions, no earache, no runny nose, no sore throat. Appetite is okay, no dysphagia, no nausea, no abdominal pain, normal bowel and bladder movements. Denies any blood in stools or black stools. No hematuria. Currently resting comfortably and hemodynamically stable. Admission Exam Per Admitting Provider PHYSICAL EXAMINATION: GENERAL: The patient is obese, not in acute distress. VITAL SIGNS: Temperature 36.7, pulse 77, respiratory rate 17, blood pressure 146/88, oxygen 96% on room air. HEENT: Pupils equal, round and reactive to light. Oral mucosa moist. NECK: No JVD, no neck masses. HEART: S1 and S2 heard, regular rate and rhythm. No murmur, no gallop. RESPIRATORY SYSTEM: Normal AP diameter. No accessory muscle use. No wheeze, no crackles. ABDOMEN: Soft, bowel sounds present, nontender, no distention. CENTRAL NERVOUS SYSTEM: Cranial nerves II-XII grossly intact, nonfocal. EXTREMITIES: Right lower extremity is slightly edematous and right foot is in dressing. No erythema seen. Principal Diagnosis (1) Pulmonary embolism: (2) Chest pain: (3) SOB (shortness of breath): (4) Arthritis of left knee: (5) Right knee DJD: Discharge Exam See below Discharge Data Allergies Allergy/AdvReac Type Severity Reaction Status Date / Time Penicillins Allergy Unknown UNKNOWN Unverified 04/21/21 21:52 Sulfa (Sulfonamide Allergy Unknown UNKNOWN Unverified 04/21/21 21:52 Antibiotics) Consultations 04/22/21 08:00 Consult Pulmonology Routine Current Diagnoses Other pulmonary embolism without acute cor pulmonale (04/22/21) Unilateral primary osteoarthritis, right knee (04/22/21) Unilateral primary osteoarthritis, left knee (04/22/21) Shortness of breath (04/22/21) Chest pain, unspecified (04/22/21) Allergies Penicillins Allergy (Unknown, Unverified 04/21/21 21:52) UNKNOWN Sulfa (Sulfonamide Antibiotics) Allergy (Unknown, Unverified 04/21/21 21:52) UNKNOWN Height/Weight/Isolation Height 5 ft 10 in Weight 115.5 kg Chemistry 04/21/21 04/22/21 18:00 05:56 Sodium 137 139 Potassium 3.8 3.6 Chloride 103 107 Carbon Dioxide 27 29 Anion Gap 7.0 3.0 BUN 18 12 Creatinine 1.24 H 0.73 D Glucose 112 H 112 H Ordered Studies 04/21/21 20:24 CT angio chest PE protocol Stat 04/21/21 20:28 US venous doppler LE RT Urgent Hospital Course (1) Pulmonary embolism: (2) Chest pain: (3) SOB (shortness of breath): (4) Arthritis of left knee: (5) Right knee DJD: ASSESSMENT AND PLAN: This is a 66-year-old female who presented with chest pain and found to have questionable PE. 1. Questionable upper lobe PE. The patient is mostly non mobile for last 8 weeks and comes with chest pain on deep breath and elevation in D-dimer. No DVT in lower extremity. CT chest showed questionable small PE in the bilateral upper lobes. She was started on IV heparin and pulmonology to see for further recommendations. Had R Ankle reconstruction recently 2. Obesity 3. Generalized anxiety disorder. On [employer]. [place] home on [facility], Condition Code 44 ROS-No Headache, No Visual Changes, No Nausea, No Vomiting, No Fever, No Chills, No Neck Pain or Stiffness, +Chest Pain, No Palpitations, +SOB, +GARCIA, No Cough, No Sputum, No Wheezing, No Abdominal Pain, No Diarrhea, No Hematemesis, No Hemoptysis, No Unexpected Weight Loss, No Flank pain, No Melena, No Hematoch ezia, No Frequency, No Urgency, No Burning, No Hematuria, No Rashes, No Diaphoresis. Appetite is Normal Physical Exam Gen-AAO x 3, NAD, Afebrile Head-NCAT, EOMI, PERRLA, Anicteric Sclera, No Posterior Pharyngeal Erythema Neck-Supple, No JVD, No Thyromegaly, No Masses, No LAD, No Bruits Lungs-Clear to Auscultation Bilaterally, No Rales, No Rhonchi, No Wheezing, No Crepitus Chest-No S4, +S1, +S2, No S3, No Murmurs, No Rubs, No Gallops, No Ectopy Abdomen-Soft, Bowel Sounds Present, Non Tender, Non Distended, No Hepatomegaly, No Splenomegaly, No Palpable Masses, No Rebound, No Rigidity, No Guarding Musculoskeletal-Full Range of Motion Bilaterally, No CVAT Extremities-No Cyanosis, No Clubbing, No Edema Nuero-Cranial Nerves II-XII grossly intact, Motor WNL, DTRs WNL, Strength WNL, Non Focal Psych-Normal Mood Total Time Total Time Spent Total Time Spent (In Minutes): 45 mins Discharge Plan Discharge Items Patient Disposition: Home - Self-Care Reason For Visit: CHEST PAIN Discharge Diagnosis: (1) Pulmonary embolism: (2) Chest pain: (3) SOB (shortness of breath): (4) Arthritis of left knee: (5) Right knee DJD: Condition on Discharge: Good Health Concerns: Minimal Activity: Resume your previous activity Activity Comment: Relax until Wednesday Lifting: Gradually increase as tolerated Bathing: No limitations Sexual Activity: When tolerated Exercise/Sports: Gradually increase as tolerated Driving/Machine Use: No limitations Weightbearing: Full weightbearing Non-emergency contact: Primary Care Provider and Pathology Supervisor Call non-emergency contact if: you have any medication questions Follow-up/Referrals: Milo Maria MD [Physician] - (Call for appointment) Dameon Pérez DO [Primary Care Provider] - Diet: Regular Addtl Attending Provider Instructions: None Pending Studies at Discharge: No Stand-Alone Forms: [employer], Opioid Pain Management, Smoking Cessation Medications and DC Order Prescriptions: New acetaminophen 325 mg Tablet 650 mg PO Q4H PRN (Reason: fever or pain) Qty: 90 RF: 0 oxycodone 5 mg Tablet 5 mg PO Q6H PRN (Reason: pain) Qty: 30 RF: 0 polyethylene glycol 3350 [Miralax] 17 gram Powder In Packet 17 g PO DAILY PRN (Reason: constipation) Qty: 30 RF: 0 Eliquis 5 mg tablet 5 mg PO Q12H Qty: 74 RF: 0 Continued aspirin 81 mg Tablet,Delayed Release (Dr/Ec) 81 mg PO QAM RF: 0 cranberry 500 mg Capsule 500 mg PO QAM RF: 0 Ocuvite Tablet 1 tab PO QAM RF: 0 escitalopram oxalate 10 mg tablet 10 mg PO QAM RF: 0 Discontinued meloxicam 15 mg tablet 15 mg PO QAM RF: 0 naproxen sodium [Aleve] 220 mg Tablet 440 mg PO Q12H PRN (Reason: Pain) RF: 0 Excedrin Extra Strength 250-250-65 mg Tablet 1 tab PO Q6H PRN (Reason: Pain) RF: 0 Discharge Orders: Discharge Order (Routine); Ordered 04/22/21 Ordered By: Carlo Nicolas Admission Data Admit Date/Time: 04/22/21 00:53 Attending Provider: Carlo Nicolas Admit Provider: Gary Gibson Primary Care Provider: Dameon Pérez Other Providers: Milo Maria
[2021-04-22] MEDS ORDERED: [UNRECOGNIZED DRUG - REMARK] ONE ×2 (14:10→21:00)
[2021-04-22] MEDS ORDERED: APIXABAN 5 MG TABLET PO SCH ×2 (14:15→21:00)
[2021-04-22 14:59] LABS: Partial Thromboplastin Ratio 1.9
[2021-04-22 15:24] LABS: Partial Thromboplastin Time 50.4 Seconds (21.0-31.0)
--- NOTE | 2021-04-22 15:31 | Electrocardiogram Report ---
Test Reason : Blood Pressure : / mmHG Vent. Rate : 082 BPM Atrial Rate : 082 BPM P-R Int : 160 ms QRS Dur : 088 ms QT Int : 388 ms P-R-T Axes : 042 006 021 degrees QTc Int : 453 ms Sinus rhythm with occasional Premature ventricular complexes Minimal voltage criteria for LVH, may be normal variant Poor R wave progression, consider anterior UT vs. lead placement vs. LVH Abnormal ECG When compared with ECG of 05-FEB-2016 12:28, Premature ventricular complexes are now Present Confirmed by Seferino Graff ([id number]) on 04/22/2021 3:31:09 PM Referred By: Dameon Pérez Confirmed By:Seferino Graff
--- NOTE | 2021-04-22 16:02 | Communication Note ---
Date of Service: April 22, 2021 By CMS guidelines, a determination that the admission or continued stay is not medically necessary has been made by a member of the Utilization Review commi ttee and a physician for this hospital stay. Therefore, a Code 44 will be completed and the inpatient admission will be changed to outpatient. Cindy Snow DO Physician Member, UR Committee
== END 2021-04-22 16:38 | disposition home or self-care (01) ==
LOC: ED 17:21 → 3E 04-22 00:53 → INTOOBSV 04-22 00:53 → 3E 04-22 01:35